=== PATIENT | female | born 1960 | race Caucasian/White ===

== ENCOUNTER 2024-04-17 13:56 | Emergency (ER) | payer OTHER, MEDICARE ==
[~2024-04-17] VITALS: Ht 165.1 cm; Wt 105.0 kg
[2024-04-17 14:03] VITALS: BP 131/65; PULSE 75; RESP 16; TEMP 97.9; O2SAT 92
[2024-04-17 14:58] LABS: CLARITY,URINE SLIGHTLY CLOUDY (Clear); COLOR,URINE ORANGE (Yellow); UA COLLECTION TYPE CLN CATCH MIDSTREAM
[2024-04-17 14:59] LABS: SQUAMOUS EPITHELIAL CELL,UR FEW /LPF (FEW); WBC CLUMPS,URINE MANY /HPF (NEGATIVE)
[2024-04-17 15:00] LABS: BACTERIA,URINE 1+ /HPF (Neg); RBC,URINE 50-100 /HPF (0-2); WBC,URINE 50-100 /HPF (0-4)
[2024-04-17] MEDS ORDERED: PHEN-716 PO (16:21)
[2024-04-17] MEDS: CefTRIAXone 1000mg IM Kit (w/lidocaine diluent) IM ONE (16:29)
== END 2024-04-17 16:37 | disposition home or self-care (01) ==
LOC: ER 13:58
DX: N39.0 Urinary tract infection, site not specified (principal); Z79.899 Other long term (current) drug therapy
CPT/HCPCS: 81001; 87088; 96372; 99283; J0696